=== PATIENT | female | born 1985 ===

== ENCOUNTER 2018-01-27 18:30 | Emergency (ER) | payer OTHER ==
[2018-01-27 18:43] VITALS: BP 101/65; PULSE 62; RESP 16; TEMP 98.2; O2SAT 100
[2018-01-27] MEDS ORDERED: Tetanus/Diphtheria Toxoids 0.5 ml Syringe IM ONE ×2 (18:57→19:16)
[2018-01-27] MEDS ORDERED: Amoxicillin-Clav 875-125 mg Tab PO STA (18:57)
--- NOTE | 2018-01-27 18:58 | C.PDOC ---
History Of Present Illness 32 year old female presents to ED for evaluation of cat bite to left lower leg after cat had been startled today. Patient states she's had the cat under her care for 5 years. She is unsure of the cat's vaccination or her own vaccinations. Denies fever, chills, nausea, vomiting and other associated symptoms. Time Seen by Provider: 01/27/18 18:54 Chief Complaint (Nursing): Bite History Per: Patient History/Exam Limitations: no limitations Onset/Duration Of Symptoms: Hrs Current Symptoms Are (Timing): Still Present Past Medical History Reviewed: Historical Data, Nursing Documentation, Vital Signs Vital Signs: Last Vital Signs Temp 98.2 F 01/27/18 18:41 Pulse 62 01/27/18 18:41 Resp 16 01/27/18 18:41 BP 101/65 01/27/18 18:41 Pulse Ox 100 01/27/18 20:15 Family History: States: Unknown Family Hx - Social History Hx Alcohol Use: Yes Hx Substance Use: No - Immunization History Hx Tetanus Toxoid Vaccination: Yes (2015) Hx Influenza Vaccination: No Hx Pneumococcal Vaccination: No Review Of Systems Constitutional: Negative for: Fever, Chills Gastrointestinal: Negative for: Nausea, Vomiting Musculoskeletal: Positive for: Leg Pain (left leg cat bite ) Physical Exam - Physical Exam Appears: Well, Non-toxic, No Acute Distress Skin: Warm, Dry, No Rash Head: Atraumatic, Normacephalic Extremity: Normal ROM, No Tenderness, No Calf Tenderness, Capillary Refill ( less than 2 seconds ), No Deformity, Other (left leg anterior tibial region with superficial cat bite, no laceration, open wound, no discharge or bleeding) Pulses: Left Femoral: Normal, Right Femoral: Normal Neurological/Psych: Oriented x3, Normal Speech, Normal Sensation Gait: Steady ED Course And Treatment O2 Sat by Pulse Oximetry: 100 (RA) Pulse Ox Interpretation: Normal Medical Decision Making Medical Decision Making: Impression: superficial cat bite to leg Plan: -Augmentin -Tetanus vaccination Progress/Update: On re-examination, patient is resting comfortably in no acute distress. Patient feels comfortable going home and will be discharged. Patient prescribed Amoxicillin and informed of follow up instructions. Instructed to return to ER if symptoms worsen or new symptoms arise. Disposition Counseled Patient/Family Regarding: Diagnosis, Need For Followup, Rx Given - Disposition [facility] Disposition: HOME/ ROUTINE Disposition Time: 19:30 Condition: GOOD Additional Instructions: Take antibiotic twice daily and be sure to finish taking all of antibiotic. Follow up for wound check in 2-3 days if wound is getting more red, streaking, or pus in wound Prescriptions: Amoxicillin/Clavulanate [Augmentin 875 MG-125 MG] 1 tab PO BID #14 tab Instructions: Animal Bites (DC) Forms: [employer] (N[place]ien) - POA Present On Arrival: None - Clinical Impression Clinical Impression: Cat bite of lower leg - PA / DEPENDENCY DIRECTOR / Resident Statement MD/DO has reviewed & agrees with the documentation as recorded. - Scribe Statement The provider has reviewed the documentation as recorded by the Scribe (Estelita Levy) All medical record entries made by the Scribe were at my direction and personally dictated by me. I have reviewed the chart and agree that the record accurately reflects my personal performance of the history, physical exam, medical decision making, and the department course for this patient. I have also personally directed, reviewed, and agree with the discharge instructions and disposition.
[2018-01-27] MEDS ORDERED: Amoxicillin-Clav 875-125 mg Tab PO ONE (19:16)
== END 2018-01-27 19:36 | disposition home or self-care (01) ==
LOC: C.ER 18:30
DX: S81.852A Open bite, left lower leg, initial encounter (principal); W55.01XA Bitten by cat, initial encounter; Z23 Encounter for immunization